=== PATIENT | male | born 1960 | race Caucasian/White ===

== ENCOUNTER → 2020-07-05 14:43 | Outpatient (CLI) | payer OTHER, SELFPAY | PROVIDERS: Family Provider Family Medicine; PCP Family Medicine; Referring Provider Family Medicine; Visit Provider Family Medicine | DX: R20.2 Paresthesia of skin (principal) | CPT/HCPCS: 95886; 95911 ==

== ENCOUNTER → 2020-08-13 09:02 | Outpatient (CLI) | payer OTHER, SELFPAY ==
--- NOTE | 2020-08-13 | DI.MRI.S_ITS ---
PROCEDURE: MR CERVICAL SPINE WO CON INDICATIONS: Radiculopathy, cervical region TECHNIQUE: Noncontrast sagittal T1 spin echo and T2 fast spin echo, sagittal STIR, foraminal oblique sagittal T2 fast spin echo, and axial gradient echo or T2 fast spin echo through the cervical spine. COMPARISON: [facility], CR, XR CERVICAL SPINE WITH OBLIQUES, 02/05/2018, 14:52. FINDINGS: Image quality: Diagnostic, with note made of motion artifact. Alignment and Curvature: There is mild retrolisthesis seen at C3-C4 and C4-C5. Bone Marrow: Marrow demonstrates normal overall signal. Spinal Cord: Visualized spinal cord has normal size. There is a slight amount of increased T2 weighted signal seen within the spinal cord from the inferior C3 level to the superior C5 level, as on series 3, image 9. No cerebellar tonsillar herniation. Paraspinous Soft Tissues: No paravertebral masses. Prevertebral soft tissues are normal in thickness. C2-C3: The disc height is well-preserved. Loss of disc signal is seen at this level. Moderate generalized disc osteophyte complex is seen. There is mild right-sided and [id number] left-sided facet hypertrophy seen. There is moderate right-sided and at least moderate left-sided neural foraminal narrowing seen. Moderate central canal narrowing is seen, with minimal associated mass effect upon the ventral spinal cord. C3-C4: Moderate loss of disc height is seen. Loss of disc signal is seen. Moderate generalized disc osteophyte complex is seen. There is a central disc osteophyte protrusion seen. Uncovertebral joint hypertrophy is seen at this level. Moderate facet joint hypertrophy is seen. Moderate to severe bilateral neural foraminal narrowing can be seen. Severe central canal narrowing is seen, with associated ventral cord flattening, as on series 4, image 18. C4-C5: Moderate to severe loss of disc height and disc signal can be seen. At least moderate disc osteophyte complex is seen, with a prominent central disc osteophyte protrusion, as on series 4, image 22. Uncovertebral joint hypertrophy is seen at this level. Moderate to severe facet hypertrophy is seen. There is severe bilateral neural foraminal narrowing seen and severe central canal narrowing, with associated ventral cord flattening. C5-C6: Moderate loss of disc height is seen. Loss of disc signal is seen. At least moderate disc osteophyte complex is seen, which is eccentric to the right. Uncovertebral joint hypertrophy is seen at this level. Moderate facet joint hypertrophy is seen. There is moderate right-sided and at least moderate left-sided neural foraminal narrowing seen. Moderate central canal narrowing is seen. C6-C7: Moderate loss of disc height is seen. Loss of disc signal is seen. Moderate disc osteophyte complex is seen, which is eccentric to the left. Uncovertebral joint hypertrophy is seen at this level. Moderate facet joint hypertrophy is seen. There is at least moderate bilateral neural foraminal narrowing seen. Mild to moderate central canal narrowing is seen, with minimal associated mass effect upon the ventral spinal cord. C7-T1: The disc height is well-preserved. Loss of disc signal is seen at this level. Mild to moderate disc osteophyte complex is seen at this level. Mild facet joint hypertrophy is seen. There is mild to moderate right-sided and moderate left-sided neural foraminal narrowing seen. No significant central canal narrowing is seen. IMPRESSION: Multiple levels of cervical spine degenerative change are seen, which are worst at the C4-C5 level, where there is severe bilateral neural foraminal narrowing and severe central canal narrowing. 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 Dictated by: Carlo Larsen M.D. on 08/13/2020 at 9:09 Approved by: Carlo Larsen M.D. on 08/13/2020 at 9:14
== END ==
PROVIDERS: Family Provider Family Medicine; PCP Family Medicine; Referring Provider Family Medicine; Visit Provider Family Medicine
DX: M50.121 Cervical disc disorder at C4-C5 level with radiculopathy (principal); M48.02 Spinal stenosis, cervical region
CPT/HCPCS: 72141

== ENCOUNTER → 2021-01-10 10:55 | Outpatient (CLI) | payer OTHER, SELFPAY ==
--- NOTE | 2021-01-10 | DI.RAD.S_ITS ---
PROCEDURE: XR CERVICAL SPINE 1V INDICATIONS: NECK PAIN TECHNIQUE: Single lateral view of the cervical spine acquired. COMPARISON: [facility], MR, MR CERVICAL SPINE WO CON, 08/13/2020, 9:10. [facility], CR, XR CERVICAL SPINE WITH OBLIQUES, 02/05/2018, 14:52. FINDINGS: Bones: No fractures or dislocations to the T1 level. No suspicious bony lesions. There has been anterior cervical plate fusion from C3 through C5, with interbody disc spacer at C3-4 and C4-5. Positioning is as expected, alignment is normal. Soft tissues: No prevertebral soft tissue swelling. IMPRESSION: Normal appearance after cervical fusion with interbody disc spacing devices from C3 through C5. Dictated by: Aleksey Irby M.D. on 01/10/2021 at 12:58 Approved by: Aleksey Irby M.D. on 01/10/2021 at 13:00
== END ==
PROVIDERS: Family Provider Family Medicine; PCP Family Medicine; Referring Provider Neurological Surgery; Visit Provider Neurological Surgery
DX: M48.02 Spinal stenosis, cervical region (principal); M47.12 Other spondylosis with myelopathy, cervical region; M54.2 Cervicalgia; Z98.1 Arthrodesis status
CPT/HCPCS: 72020

== ENCOUNTER → 2021-02-26 12:29 | Outpatient (CLI) | payer OTHER, SELFPAY ==
--- NOTE | 2021-02-26 12:37 | DI.RAD.S_ITS ---
PROCEDURE: XR HIP W PEL IF DONE RT 2V INDICATIONS: RT HIP/ BACK PAIN TECHNIQUE: AP pelvis with lateral view(s) of the right hip(s). COMPARISON: None. FINDINGS: Bones: No fractures or dislocations. Pelvic ring appears intact. No suspicious bony lesions. Soft tissues: The visualized bowel gas pattern is normal. No suspicious soft tissue calcifications. IMPRESSION: No trauma found. Minimal joint space narrowing at the right hip, slightly more prominent than on the left. No prior trauma found. Dictated by: Aleksey Irby M.D. on 02/26/2021 at 14:15 Approved by: Aleksey Irby M.D. on 02/26/2021 at 14:16
--- NOTE | 2021-02-26 12:37 | DI.RAD.S_ITS ---
PROCEDURE: XR LUMBAR SPINE 2-3V INDICATIONS: RT HIP/ BACK PAIN TECHNIQUE: 3 views of the lumbar spine were acquired. [facility], [facility], 12:20. FINDINGS: Bones: The 12th ribs bilaterally are diminutive. Air seen on the frontal view but would not be visible on the lateral view. 5 vcc-nvm-ijvrakw vertebrae are present and there is a rudimentary disc at L5-S1.. There is normal bony alignment. No vertebral body compression fractures. No suspicious bony lesions. Soft tissues: Overlying bowel gas pattern is normal. No suspicious soft tissue calcifications. IMPRESSION: No acute disease. Rudimentary disc at L5-S1 and also rudimentary T12 ribs. Alternatively, when viewing the thoracic spine there is a possible fully developed large 12th rib present bilaterally and the rudimentary ribs immediately below may represent ribs at L1 or 13 rib-bearing vertebral bodies of the thoracic spine. Regardless, some degree of segmentation anomaly is present. However, no trauma is found, no subluxation is seen, and no significant degenerative disc disease is found. Facet osteoarthritis appears to become slightly more prominent as the sacrum is approached, as a likely cause for low back pain. Dictated by: Aleksey Irby M.D. on 02/26/2021 at 14:16 Approved by: Aleksey Irby M.D. on 02/26/2021 at 14:22
== END ==
PROVIDERS: Family Provider Family Medicine; PCP Family Medicine; Referring Provider Family Medicine; Visit Provider Family Medicine
DX: M25.551 Pain in right hip (principal); M54.9 Dorsalgia, unspecified
CPT/HCPCS: 72100; 73502

== ENCOUNTER → 2021-03-06 12:50 | Outpatient (CLI) | payer OTHER, SELFPAY ==
--- NOTE | 2021-03-06 12:54 | DI.RAD.S_ITS ---
PROCEDURE: XR CERVICAL SPINE 2V OR 3V INDICATIONS: Headache, unspecified TECHNIQUE: 3 view(s) of the cervical spine were acquired. COMPARISON: [facility], CR, XR CERVICAL SPINE 1V, 01/10/2021, 11:39. FINDINGS: Bones: No fracture. Postsurgical changes related ACDF at C3-C4 and C4-C5 with interbody cage grafts. Multilevel spondylosis/endplate changes. Diffuse facet arthropathy. Mild narrowing of the C5-C6 C6-C7 and C7-T1 disc spaces. No evidence of abnormal motion with dynamic flexion and extension lateral views. Soft tissues: No prevertebral soft tissue swelling. IMPRESSION: Expected postoperative alignment. No interval change since 01/10/21. No evidence of abnormal motion with dynamic flexion and extension lateral views. Dictated by: Meño Brooks M.D. on 03/06/2021 at 14:27 Approved by: Meño Brooks M.D. on 03/06/2021 at 14:29
== END ==
PROVIDERS: Family Provider Family Medicine; PCP Family Medicine; Referring Provider Neurological Surgery; Visit Provider Neurological Surgery
DX: M47.12 Other spondylosis with myelopathy, cervical region (principal); M48.02 Spinal stenosis, cervical region; R51.9 Headache, unspecified
CPT/HCPCS: 72040

== ENCOUNTER → 2021-11-15 17:49 | Outpatient (CLI) | payer OTHER, SELFPAY ==
--- NOTE | 2021-11-15 17:51 | DI.MRI.S_ITS ---
PROCEDURE: MR LUMBAR SPINE WO CON INDICATIONS: Right L5-S1 radiculopathy TECHNIQUE: Noncontrast sagittal T1 spin echo and T2 fast echo, sagittal STIR, axial T1 and T2 fast spin echo through the lumbar spine. In cases with scoliosis, additional coronal T2 fast spin echo may be performed. COMPARISON: [facility], CR, XR LUMBAR SPINE 2-3V, 02/26/2021, 12:37. FINDINGS: Image quality: Excellent. Alignment and Curvature: There is normal bony alignment. Bone Marrow: Marrow is of normal overall signal. No acute vertebral body compression fractures. Spinal Cord: Conus medullaris terminates at the L1-L2 level. Visualized cord demonstrates normal signal and size. Paraspinous Soft Tissues: No paravertebral masses. T12-L1: No canal stenosis or foraminal stenosis. L1-L2: No canal stenosis or foraminal stenosis. L2-L3: No canal stenosis or foraminal stenosis. L3-L4: Disc bulge, facet hypertrophy. Fwdq-vt-voozlbcz canal stenosis. Mild bilateral foraminal stenosis. L4-L5: Disc bulge, facet hypertrophy, epidural lipomatosis. Mvqw-iu-fasoqyfc canal stenosis. Bilateral foraminal annulus tears plus disc bulges with mild bilateral foraminal narrowing. L5-S1: Disc bulge. Facet hypertrophy. Borderline canal stenosis. Right foraminal annulus tear plus disc bulge. Moderate right foraminal narrowing with mild flattening deformity on the exiting right L5 nerve root. IMPRESSION: 1. Multilevel facet arthropathy. 2. Canal stenosis is mild to moderate at L3-L4, mfwr-og-tlkiysrm at L4-L5, and borderline at L5-S1. 3. There are bilateral foraminal annulus tears at L4-L5 and there is a right foraminal annulus tear at L5-S1. 4. Multilevel foraminal narrowing as described above, including moderate right foraminal narrowing at L5-S1. Dictated by: Adria Ambriz M.D. on 11/15/2021 at 19:13 Approved by: Adria Ambriz M.D. on 11/15/2021 at 19:18
== END ==
PROVIDERS: Family Provider Family Medicine; PCP Family Medicine; Referring Provider Physical Medicine & Rehabilitation; Visit Provider Physical Medicine & Rehabilitation
DX: M47.26 Other spondylosis with radiculopathy, lumbar region (principal); M47.27 Other spondylosis with radiculopathy, lumbosacral region; M48.061 Spinal stenosis, lumbar region without neurogenic claudication; M48.07 Spinal stenosis, lumbosacral region
CPT/HCPCS: 72148

== ENCOUNTER → 2022-01-13 13:23 | Outpatient (CLI) | payer OTHER, SELFPAY ==
[2022-01-13 17:15] LABS: COVID19 -Nasal RAPID Negative (Negative)
== END ==
PROVIDERS: Family Provider Family Medicine; PCP Family Medicine; Visit Provider Physical Medicine & Rehabilitation
DX: Z20.822 Contact with and (suspected) exposure to COVID-19 (principal)
CPT/HCPCS: 87635; C9803

== ENCOUNTER 2022-01-14 14:44 | Outpatient (CLI) | payer OTHER, SELFPAY ==
[2022-01-14] VITALS (10 sets, daily range): BP systolic 117–152; BP diastolic 56–92; PULSE 80–86; RESP 12–21; TEMP 36.9; O2SAT 95–98
--- NOTE | 2022-01-14 14:47 | DI.RAD.S_ITS ---
PROCEDURE: PAIN L/S FACET INJ/BLK 1ST SHEN COMPARISON: None. INDICATIONS: Spondylosis FINDINGS: Access needle tips localized to the bilateral L4-L5 and L5-S1 facet joint space. Injection of small amount of contrast material through the access needles confirms positioning of the tips in the facet joints. IMPRESSION: Access needles localized to the bilateral L4-L5 and L5-S1 facet joints. Dictated by: Kassie Montoya MD, PhD on 01/15/2022 at 11:27 Approved by: Kassie Montoya MD, PhD on 01/15/2022 at 11:28
[2022-01-14] MEDS: fentaNYL 100 MCG/2 ML INJ (15:25)
[2022-01-14] MEDS: MIDAZOLAM 2 MG/2 ML VIAL (15:25)
[2022-01-14] MEDS: IOPAMIDOL 15 ML VIAL INJ (15:29)
[2022-01-14] MEDS: BUPIVACAINE 0.5% (PF) VIAL 30 ML (15:29)
[2022-01-14] MEDS: BETAMETHASONE 30 MG/5 ML MDV (15:30)
[2022-01-14] MEDS: LIDOCAINE 1% 20 ML (15:30)
[2022-01-14] MEDS: MIDAZOLAM 2 MG/2 ML VIAL IV (15:32)
--- NOTE | 2022-01-14 15:41 | DI.RAD.S_ITS ---
PROCEDURE: XR HAND LT 2V INDICATIONS: cmc joint pain TECHNIQUE: 2 views of the hand(s) acquired. COMPARISON: None. FINDINGS: Bones: No fractures or dislocations. Carpal bones are normally aligned. No suspicious bony lesions. Joint space narrowing and periarticular osteophyte formation at the scaphoid trapezial, 1st carpometacarpal joint, 1st metacarpophalangeal joint, as well as the interphalangeal joints of the digits, indicating osteoarthritis. Soft tissues: No suspicious soft tissue calcifications. IMPRESSION: Osteoarthritis. No acute fracture. No osseous lesion. If symptoms and/or clinical suspicion for pathology persist, further assessment with repeat, or advanced imaging (e.g., CT, MRI, or bone scan) may be helpful for further assessment. Dictated by: Eden Hassan M.D. on 01/14/2022 at 16:37 Approved by: Eden Hassan M.D. on 01/14/2022 at 16:37
--- NOTE | 2022-01-14 15:41 | DI.RAD.S_ITS ---
PROCEDURE: XR HAND RT 2V INDICATIONS: cmc joint pain TECHNIQUE: 2 views of the hand(s) acquired. COMPARISON: None. FINDINGS: Bones: No fractures or dislocations. Carpal bones are normally aligned. No suspicious bony lesions. Joint space narrowing and periarticular osteophyte formation at the scaphoid trapezial, 1st carpometacarpal joint, as well as the interphalangeal joints of the digits, indicating osteoarthritis. Periarticular lucency involves the 5th metacarpal head. Soft tissues: No suspicious soft tissue calcifications. IMPRESSION: 1. Osteoarthritis. 2. Possible periarticular erosion involving the 5th metacarpophalangeal joint, which could indicate erosive arthropathy. Dictated by: Eden Hassan M.D. on 01/14/2022 at 16:36 Approved by: Eden Hassan M.D. on 01/14/2022 at 16:37
--- NOTE | 2022-01-14 15:44 | P.PCN_ITS ---
Date/Time/Diagnoses Date of procedure: 01/14/22 Time of procedure: 15:44 Pre-procedure diagnosis: 1. FACET ARTHROPATHY 2. AXIAL LBP 3. MULTILEVEL DDD Post-procedure diagnosis: same Procedure Notes Procedure: 1. FLUOROSCOPICALLY GUIDED CONTRAST CONTROLLED FACET JOINT INJECTIONS BILATERAL L4/5, L5/S1 Indications: Ramón is referred by Dr. Trinidad for treatment of Axial LBP Physician: Severo Glasgow Total Fluoroscopy time (seconds): 15 Total sedation minutes: 14 Complications: none Procedure in detail & Post-procedure care: FINDINGS Multilevel Facet Arthropathy with Clinically significant axial LBP DESCRIPTION OF PROCEDURE Fluoroscopically guided, contrast-controlled bilateral L4/5, L5/S1 facet joint injections. Following review of allergy and review of potential side effects and complications, including, but not necessarily limited to, infection, allergic reaction, local tissue breakdown, stroke, temporary or permanent nerve injury, paralysis, and possible , the patient indicated that the patient understood and agreed to proceed. An informed consent document was signed by the patient, witnessed by a nurse, and placed in the patient's chart. Additionally, other treatment options including medications, modalities, and physical therapy were reviewed with the patient. After review of previous anaesthesic history and IV conscious sedation the patient was deemed safe to proceed with today?s procedure with IV conscious sedation as ASA class II designation. Safety time-out was performed to confirm patient ID, procedure to be performed and site of procedure. IV sedation was accomplished with a combination of 4mg of Versed and 50mcg of Fentanyl was administered by the RN after DO order, titrated to patient comfort during the course of the procedure while the patient remained responsive to all verbal commands In the prone position, following sterile prep and drape of the lumbar region, the posterior aspect of the L4/5, L5/S1 facet joints were identified fluoroscopically. The skin was anesthetized via a 25-gauge 1.5inch needle with 1% lidocaine solution into the corresponding facet joints. At this point, a 22- gauge 3.5-inch spinal needle was atraumatically introduced and advanced under fluoroscopic guidance into the corresponding facet joints. Following negative aspiration, injections of approximately 0.2cc of Isovue 200 confirmed inte rarticular placement without vascular uptake. The identical procedure was then performed at the L4/5, L5/S1 facet joints on the left. Radiological data, including multiple fluoroscopic views of the lumbosacral spine, reveal a spinal needle at the L4/5, L5/S1 facet joints bilaterally. Subsequent views show flow of contrast material both superiorly and inferiorly within the joint space without vascular or intrathecal uptake. At this point, a total of 0.5cc including a mixture of 0.25cc Marcaine and 0.25cc betamethasone was injected without complication into each of the corresponding facet joints. The patient tolerated the procedure well without signs or symptoms of complications prior to transfer to the recovery area continued monitoring without incident. The patient was then transferred to the recovery area where they were observed for an appropriate period of time after the injection. The patient reported a VAS score of 7 prior to the procedure and a post- procedure VAS of 0. POST OP INSTRUCTIONS The patient was provided a Pain Log to continue to record their response to the target-specific procedure prior to follow-up visit with their referring physician. Additionally, specific post-injection care instructions and a contact number to our office were provided if concerns arise regarding possible complications associated with the procedure are suspected.
== END 2022-01-14 16:08 | disposition home or self-care (01) ==
PROVIDERS: Family Provider Family Medicine; PCP Family Medicine; Referring Provider Physical Medicine & Rehabilitation; Visit Provider Physical Medicine & Rehabilitation
DX: M47.816 Spondylosis without myelopathy or radiculopathy, lumbar region (principal); M47.817 Spondylosis without myelopathy or radiculopathy, lumbosacral region; M51.36 Other intervertebral disc degeneration, lumbar region; M51.37 Other intervertebral disc degeneration, lumbosacral region; M18.0 Bilateral primary osteoarthritis of first carpometacarpal joints
CPT/HCPCS: 64493; 64494; 73120; 99152; J0702; J2250; J3010

== ENCOUNTER → 2022-01-14 16:16 | Outpatient (CLI) | payer OTHER, SELFPAY | PROVIDERS: Family Provider Family Medicine; PCP Family Medicine; Referring Provider Physical Medicine & Rehabilitation; Visit Provider Physical Medicine & Rehabilitation | DX: M18.0 Bilateral primary osteoarthritis of first carpometacarpal joints (principal) ==

== ENCOUNTER → 2022-03-25 10:53 | Outpatient (CLI) | payer OTHER, SELFPAY ==
[2022-03-25 12:30] LABS: COVID19 -Nasal RAPID Negative (Negative)
== END ==
PROVIDERS: Family Provider Family Medicine; PCP Family Medicine; Visit Provider Physical Medicine & Rehabilitation
DX: Z20.822 Contact with and (suspected) exposure to COVID-19 (principal)
CPT/HCPCS: 87635; C9803

== ENCOUNTER 2022-03-27 12:28 | Outpatient (CLI) | payer OTHER, SELFPAY ==
[2022-03-27] VITALS (9 sets, daily range): BP systolic 110–149; BP diastolic 55–86; PULSE 79–93; RESP 12–22; TEMP 36.7; O2SAT 96–98
--- NOTE | 2022-03-27 12:34 | DI.RAD.S_ITS ---
PROCEDURE: PAIN L/S FACET INJ/BLK 1ST SHEN COMPARISON: [facility], , PAIN L/S FACET INJ/BLK 1ST SHEN, 01/14/2022, 16:29. INDICATIONS: SPONDYLOSIS FINDINGS: Fluoroscopic spot filming was performed to verify placement of spinal needles on both sides at the L4, L5, and S1 levels, as labeled on the films. Appropriate location of the needle tips was confirmed by injection of iodinated contrast. IMPRESSION: Intraprocedural examination demonstrating appropriate positions of the needles. Dictated by: Carlo Larsen M.D. on 03/27/2022 at 13:08 Approved by: Carlo Larsen M.D. on 03/27/2022 at 13:09
[2022-03-27] MEDS: MIDAZOLAM 2 MG/2 ML VIAL IV (13:16)
[2022-03-27] MEDS: MIDAZOLAM 2 MG/2 ML VIAL (13:21)
[2022-03-27] MEDS: IOPAMIDOL 15 ML VIAL 3 ML INJ (13:22)
[2022-03-27] MEDS: LIDOCAINE 1% 20 ML (13:22)
[2022-03-27] MEDS: BUPIVACAINE 0.5% (PF) VIAL 5 ML INJ (13:22)
--- NOTE | 2022-03-27 13:37 | PM.PROC.IR.1 ---
Date/Time/Diagnoses Date of procedure: 03/27/22 Time of procedure: 13:37 Pre-procedure diagnosis: 1. FACET ARTHROPATHY Post-procedure diagnosis: same Procedure Notes Procedure: 1. BILATERAL- L4, L5 and S1 DIAGNOSTIC MB BLOCKS with LA Anesthetic Indications: Ramón is referred by Dr. Trinidad for treatment of Bilateral Axial LBP. Physician: Severo Glasgow Total Fluoroscopy time (seconds): 14 Total sedation minutes: 15 Complications: none Procedure in detail & Post-procedure care: DESCRIPTION OF PROCEDURE Fluoroscopically guided, contrast-controlled bilateral L4, L5 and S1 medial branch blocks with 0.5cc of 0.5% Marcaine. Following review of allergy and review of potential side effects and complications, including, but not necessarily limited to, infection, allergic reaction, local tissue breakdown, nerve injury, paralysis, stroke and possible , the patient indicated that the patient understood and agreed to proceed. An informed consent document was signed by the patient, witnessed by a nurse, and placed in the patient's chart. After review of previous anaesthesic history and IV conscious sedation the patient was deemed safe to proceed with today's procedure with IV conscious sedation as ASA class II designation. Safety time-out was performed to confirm patient ID, procedure to be performed and site of procedure. IV sedation was accomplished with a combination of 4mg of Versed was administered by the RN after DO order, titrated to patient comfort during the course of the procedure while the patient remained responsive to all verbal commands In the prone position, following sterile prep and drape of the lumbar region, the right L4, L5 and S1 anatomical location of the medial branch of the dorsal ramus was identified fluoroscopically. Subsequently an anesthetic skin wheal using 1% lidocaine solution was initiated at each of the anatomical spots. Subsequently then a 22-gauge 3.5-inch spinal needle was atraumatically introduced and advanced under fluoroscopic guidance at each of the corresponding sites at the right L4, L5 and S1 MB. After negative aspiration, 0.2cc of Isovue 200 was injected, confirming placement without vascular or intrathecal uptake. Subsequently then 0.5cc of 0.5% Marcaine solution was injected at each of the corresponding sites at the right L4, L5 and S1 medial branch locations. The identical procedure was replicated on the left. The patient tolerated the procedure well without signs or symptoms of complications prior to transfer to the recovery area continued monitoring without incident. Post-procedure, the patient was monitored initiating provocative activities to measure the amount of relief from block of the facetogenic pain. The patient reported a VAS of 7 prior to the procedure and a post-procedure VAS of 1. It has been a pleasure to assist in the diagnostic and therapeutic care of your patient. POST OP INSTRUCTIONS The patient was provided with a Pain Log to complete over the next several hours and subsequent days prior to the patient's follow up with the ordering physician. If the patient has supervisor corduroy cutting relief to the solution applied, then they may be a candidate for medial branch rhizotomy. The patient is aware, was provided, once again, with a Pain Log and will follow up with the referring physician for review and clinical correlation
== END 2022-03-27 13:55 | disposition home or self-care (01) ==
LOC: RAD 12:31
PROVIDERS: Family Provider Family Medicine; PCP Family Medicine; Referring Provider Physical Medicine & Rehabilitation; Visit Provider Physical Medicine & Rehabilitation
DX: M47.816 Spondylosis without myelopathy or radiculopathy, lumbar region (principal); M47.817 Spondylosis without myelopathy or radiculopathy, lumbosacral region
CPT/HCPCS: 64493; 64494; 99152; J2250

== ENCOUNTER → 2022-06-17 10:56 | Outpatient (CLI) | payer OTHER, SELFPAY ==
[2022-06-17 12:14] LABS: COVID19 -Nasal RAPID Negative (Negative)
== END ==
PROVIDERS: Family Provider Family Medicine; PCP Family Medicine; Visit Provider Physical Medicine & Rehabilitation
DX: Z20.822 Contact with and (suspected) exposure to COVID-19 (principal)
CPT/HCPCS: 87635; C9803

== ENCOUNTER 2022-06-19 10:43 | Outpatient (CLI) | payer OTHER, SELFPAY ==
[2022-06-19] VITALS (13 sets, daily range): BP systolic 119–181; BP diastolic 69–89; PULSE 71–82; RESP 12–20; TEMP 36.3; O2SAT 95–99
--- NOTE | 2022-06-19 10:44 | DI.RAD.S_ITS ---
PROCEDURE: PAIN L/S MED/LAT N RFA BILAT INDICATIONS: SPONDYLOSIS COMPARISON: [facility], XA, PAIN L/S FACET INJ/BLK 1ST SHEN, 01/14/2022, 16:29. [facility], XA, PAIN L/S FACET INJ/BLK 1ST SHEN, 03/27/2022, 13:21. FINDINGS: Fluoroscopic spot filming was performed to verify placement of spinal needles on both sides at the L4, L5, and S1 levels, as labeled on the films. IMPRESSION: Images during rhizotomy within normal limits. Dictated by: Carlo Larsen M.D. on 06/24/2022 at 8:10 Approved by: Carlo Larsen M.D. on 06/24/2022 at 8:10
[2022-06-19] MEDS: LIDOCAINE 1% (PF) 5 ML INJ (12:17)
[2022-06-19] MEDS: BUPIVACAINE 0.5% (PF) VIAL 5 ML INJ (12:24)
[2022-06-19] MEDS: MIDAZOLAM 2 MG/2 ML VIAL 4 MG IV (12:26)
--- NOTE | 2022-06-19 12:52 | P.PCN_ITS ---
Date/Time/Diagnoses Date of procedure: 06/19/22 Time of procedure: 12:53 Pre-procedure diagnosis: 1. RECALCITRANT FACET ARTHROPATHY Post-procedure diagnosis: same Procedure Notes Procedure: 1. BILATERAL L4 AND L5 MEDIAL BRANCH RADIOFREQUENCY NEUROTOMY AND S1 DORSAL RAMUS BRANCH RADIOFREQUENCY NEUROTOMY Indications: Carter is referred by Dr. Trinidad for treatment of facet arthropathy. Physician: Severo Glasgow Total Fluoroscopy time (seconds): 21 Total sedation minutes: 39 Complications: none Procedure in detail & Post-procedure care: DESCRIPTION OF PROCEDURE Bilateral L4 and L5 medial branch radiofrequency neurotomy and bilateral S1 dorsal ramus radiofrequency neurotomy under fluoroscopy with conscious sedation. The patient is well known to this clinic having undergone previous facet injections with good but temporary relief. The patient has experienced appropriate, concordant relief with previous facet and median branch blocks but the patient's pain has been recalcitrant to further conservative measures. Therefore, based upon the patient's relief and persistent symptoms, the patient is considered an appropriate candidate for facet rhizotomy. All of the patient's questions regarding the risks versus benefits of the procedure, including, but not limited to, bleeding, infection, temporary as well as lasting nerve injury, paralysis, stroke, and , as well treatment alternatives were answered to satisfaction. After obtaining informed consent, denial of pertinent drug allergies, as well as being made aware of the potential risks of bleeding, infection, spinal cord trauma, paralysis, temporary and permanent nerve damage, seizure, stroke, and possible , the patient was brought to the fluoroscopy suite and positioned prone on the fluoroscopy table. The lumbar region was prepped with Betadine and covered with a fenestrated drape in the usual sterile fashion. Appropriate monitors applied including pulse oximeter, pulse, and blood pressure for regular monitoring throughout the procedure. After review of previous anaesthesic history and IV conscious sedation the patient was deemed safe to proceed with today's procedure with IV conscious sedation as ASA class II designation. Safety time-out was performed to confirm patient ID, procedure to be performed and site of procedure. IV sedation was accomplished with a combination of 4mg of Versed administered by the RN after DO order, titrated to patient comfort during the course of the procedure while the patient remained responsive to all verbal commands. After local infiltration using 1% lidocaine, under fluoroscopic guidance, a 10- cm RF insulated needle with a 10-mm active tip was positioned parallel to the junction of the right sacral ala and the superior articulating process where the S1 dorsal ramus resides. Needle placement was confirmed with motor stimulation of .5v on the right which produced local stimulation without radicular component. The stimulation was then increased to 2v with, once again, only local multifidus stimulation without radicular component. The needle was then removed and the identical procedure was performed along the length of the right L5 medial branch with motor stimulation at .7v on the right. The identical procedure was once again performed along the length of the right L4 medial branch with motor stimulation of .5v on the right. The medial branches were then anesthetised with 0.5% Marcaine. This was then followed by two discreet lesions performed at 80 degrees Celsius for 90 seconds each. The identical procedure was repeated on the left. The patient tolerated the procedure well without signs or symptoms of complications prior to transfer to the recovery area continued monitoring without incident. The patient was then transferred to the recovery area where they were observed for an appropriate period of time after the injection. The patient reported a VAS score of 9 prior to the procedure and a post-procedure VAS of 0. POST OP INSTRUCTIONS The patient was provided a Pain Log to continue to record the patient's response to the target-specific procedure prior to the patient's follow-up visit with the referring physician. Additionally, specific post-injection care instructions and a contact number to our office were provided if concerns arise regarding possible complications associated with the procedure are suspected.
== END 2022-06-19 13:08 | disposition home or self-care (01) ==
LOC: RAD 10:44
PROVIDERS: Family Provider Family Medicine; PCP Family Medicine; Referring Provider Physical Medicine & Rehabilitation; Visit Provider Physical Medicine & Rehabilitation
DX: M47.816 Spondylosis without myelopathy or radiculopathy, lumbar region (principal); M47.817 Spondylosis without myelopathy or radiculopathy, lumbosacral region
CPT/HCPCS: 64635; 64636; 99152; 99153; J2250

== ENCOUNTER 2022-10-14 08:54 | Outpatient (CLI) | payer OTHER, SELFPAY ==
[2022-10-14] VITALS (8 sets, daily range): BP systolic 123–157; BP diastolic 67–89; PULSE 66–77; RESP 13–20; TEMP 36.3; O2SAT 97–100
--- NOTE | 2022-10-14 08:55 | DI.RAD.S_ITS ---
PROCEDURE: PAIN L INTERLAMINAR/CAUDAL INJ INDICATIONS: SPONDYLOSIS COMPARISON: [facility], , PAIN L/S MED/LAT N RFA BILAT, 06/19/2022, 12:12. FINDINGS: Fluoroscopic spot filming was performed to verify placement of a spinal needle at the L5-S1 level, as labeled on the films. Appropriate location of the needle tip was confirmed by injection of iodinated contrast. IMPRESSION: No significant intraprocedural abnormality. Dictated by: Carlo Larsen M.D. on 10/14/2022 at 10:11 Approved by: Carlo Larsen M.D. on 10/14/2022 at 10:11
[2022-10-14] MEDS: MIDAZOLAM 2 MG/2 ML VIAL IV (09:49)
[2022-10-14] MEDS: IOPAMIDOL 15 ML VIAL 3 ML INJ (09:55)
[2022-10-14] MEDS: BUPIVACAINE 0.25% (PF) VIAL 2 ML INJ (09:55)
[2022-10-14] MEDS: DEXAMETHASONE 10 MG/ML VIAL 20 MG INJ (09:56)
[2022-10-14] MEDS: methylPREDNISolone acetate 80 MG/ML VIAL INJ (09:56)
--- NOTE | 2022-10-14 10:07 | P.PCN_ITS ---
Date/Time/Diagnoses Date of procedure: 10/14/22 Time of procedure: 10:07 Pre-procedure diagnosis: 1. HNP WITH RADICULAR FEATURES, 2. MULTILEVEL CENTRAL STENOSIS, Post-procedure diagnosis: same Procedure Notes Procedure: 1. FLUOROSCOPICALLY GUIDED CONTRAST CONTROLLED INTERLAMINAR EPIDURAL STEROID INJECTION - L5/S1 Indications: Ramón is referred by Dr. Trinidad for treatment of Bilateral Foraminal Stenosis L>R LE symptoms. Physician: Severo Glasgow Total Fluoroscopy time (seconds): 6 Total sedation minutes: 10 Complications: none Procedure in detail & Post-procedure care: FINDINGS Multilevel Central Spinal Stenosis with Nerve Root Compression DESCRIPTION OF PROCEDURE Fluoroscopically guided, contrast-controlled L5/S1 translaminar epidural steroid injection. Following review of allergy and review of potential side effects and complications, including, but not necessarily limited to, infection, allergic reaction, local tissue breakdown, temporary as well as permanent nerve injury, paralysis, stroke and possible , the patient indicated that the patient understood and agreed to proceed. An informed consent document was signed by the patient, witnessed by a nurse, and placed in the patient's chart. Additionally, other treatment options including modalities, medications, and physical therapy were reviewed with the patient. After review of previous anaesthesic history and IV conscious sedation the patient was deemed safe to proceed with today?s procedure with IV conscious sedation as ASA class II designation. Safety time-out was performed to confirm patient ID, procedure to be performed and site of procedure. IV sedation was accomplished with a combination of 2mg of Versed administered by the RN after DO order, titrated to patient comfort during the course of the procedure while the patient remained responsive to all verbal commands. In the prone position, following sterile prep and drape of the lumbar region, the L5/S1 translaminar space was identified fluoroscopically. The skin was anesthetized via a 25-gauge, 1.5-inch needle with 1% lidocaine solution. At this point, a 22-gauge short bevel spinal needle was atraumatically introduced and advanced under fluoroscopic guidance into the region of the L5/S1 translaminar space. Depth was confirmed on lateral view. Radiological data, including multiple fluoroscopic views of the lumbar spine, reveal a spinal needle at the L5/S1 translaminar space. Lateral views then show placement of the needle in the epidural space. Subsequent views show contrast material flowing superiorly and inferiorly in the epidural space. No vascular or intrathecal uptake is observed. At this point, using loss of resistance technique with saline and air, the epidural space was entered. This was confirmed following negative aspiration with injection of approximately 1.5cc of Isovue 200, showing excellent epidural flow without vascular or intrathecal uptake. At this point, 1 cc of 1% lidocai ne solution combined with 3cc or 20mg of dexamethasone and 6mg of betamethasone was injected without incident. The patent tolerated the procedure without signs of symptoms of complications prior to transfer to the recovery area for further monitoring. The patient was then transferred to the recovery area where they were observed for an appropriate period of time after the injection. The patient reported a VAS score of 6 prior to the procedure and a post-procedure VAS of 0. POST OP INSTRUCTIONS The patient was provided a Pain Log to continue to record their response to the target-specific procedure prior to follow-up visit with their referring physician. Additionally, specific post-injection care instructions and a contact number to our office were provided if concerns arise regarding possible complications associated with the procedure are suspected.
== END 2022-10-14 10:27 | disposition home or self-care (01) ==
PROVIDERS: Family Provider Family Medicine; PCP Family Medicine; Referring Provider Physical Medicine & Rehabilitation; Visit Provider Physical Medicine & Rehabilitation
DX: M51.17 Intervertebral disc disorders with radiculopathy, lumbosacral region (principal); M48.07 Spinal stenosis, lumbosacral region
CPT/HCPCS: 62323; 99152; J0702; J1030; J1040; J1100; J2250; J3490

== ENCOUNTER 2023-03-24 15:04 | Outpatient (CLI) | payer MEDICARE, OTHER, SELFPAY ==
[2023-03-24] VITALS (8 sets, daily range): BP systolic 121–154; BP diastolic 67–82; PULSE 83–89; RESP 14–20; TEMP 36.7; O2SAT 91–98
--- NOTE | 2023-03-24 15:06 | DI.RAD.S_ITS ---
PROCEDURE: PAIN L INTERLAMINAR/CAUDAL INJ INDICATIONS: SPONDYLOSIS COMPARISON: [facility], XA, PAIN L INTERLAMINAR/CAUDAL INJ, 10/14/2022, 10:54. FINDINGS: Fluoroscopic spot filming was performed to verify placement of spinal needles at the right L3-L4 interlaminar space level(s), as labeled on the films. Appropriate location(s) of the needle tip(s) was confirmed by injection of iodinated contrast. IMPRESSION: Access needle in the right L3-L4 interlaminar space for translaminar epidural steroid injection. Dictated by: Kassie Montoya MD, PhD on 03/24/2023 at 16:32 Approved by: Kassie Montoya MD, PhD on 03/24/2023 at 16:32
[2023-03-24] MEDS: MIDAZOLAM 2 MG/2 ML VIAL IV (15:54)
[2023-03-24] MEDS: DEXAMETHASONE 10 MG/ML VIAL 20 MG INJ (16:01)
[2023-03-24] MEDS: BETAMETHASONE 30 MG/5 ML MDV 6 MG INJ (16:01)
[2023-03-24] MEDS: BUPIVACAINE 0.25% (PF) VIAL 2 ML INJ (16:02)
[2023-03-24] MEDS: IOPAMIDOL 15 ML VIAL 3 ML INJ (16:02)
--- NOTE | 2023-03-24 16:09 | P.PCN_ITS ---
Date/Time/Diagnoses Date of procedure: 03/24/23 Time of procedure: 16:09 Pre-procedure diagnosis: 1. HNP WITH RADICULAR FEATURES, 2. MULTILEVEL CENTRAL STENOSIS, Post-procedure diagnosis: same Procedure Notes Procedure: 1. FLUOROSCOPICALLY GUIDED CONTRAST CONTROLLED INTERLAMINAR EPIDURAL STEROID INJECTION - L3/4 Indications: Carter is referred by Dr. Trinidad for treatment of Bilateral Foraminal Stenosis L>R LE symptoms. Physician: Severo Glasgow Total Fluoroscopy time (seconds): 6 Total sedation minutes: 10 Complications: none Procedure in detail & Post-procedure care: FINDINGS Multilevel Central Spinal Stenosis with Nerve Root Compression DESCRIPTION OF PROCEDURE Fluoroscopically guided, contrast-controlled L3/4 translaminar epidural steroid injection. Following review of allergy and review of potential side effects and complications, including, but not necessarily limited to, infection, allergic reaction, local tissue breakdown, temporary as well as permanent nerve injury, paralysis, stroke and possible , the patient indicated that the patient understood and agreed to proceed. An informed consent document was signed by the patient, witnessed by a nurse, and placed in the patient's chart. Additionally, other treatment options including modalities, medications, and physical therapy were reviewed with the patient. After review of previous anaesthesic history and IV conscious sedation the patient was deemed safe to proceed with today?s procedure with IV conscious sedation as ASA class II designation. Safety time-out was performed to confirm patient ID, procedure to be performed and site of procedure. IV sedation was accomplished with a combination of 2mg of Versed was administered by the RN after DO order, titrated to patient comfort during the course of the procedure while the patient remained responsive to all verbal commands. In the prone position, following sterile prep and drape of the lumbar region, the L3/4 translaminar space was identified fluoroscopically. The skin was anesthetized via a 25-gauge, 1.5-inch needle with 1% lidocaine solution. At this point, a 22-gauge short bevel spinal needle was atraumatically introduced and advanced under fluoroscopic guidance into the region of the L3/4 translaminar space. Depth was confirmed on lateral view. Radiological data, including multiple fluoroscopic views of the lumbar spine, reveal a spinal needle at the L3/4 translaminar space. Lateral views then show placement of the needle in the epidural space. Subsequent views show contrast material flowing superiorly and inferiorly in the epidural space. No vascular or intrathecal uptake is observed. At this point, using loss of resistance technique with saline and air, the epidural space was entered. This was confirmed following negative aspiration with injection of approximately 1.5 cc of Isovue 200, showing excellent epidural flow without vascular or intrathecal uptake. At this point, 1cc of 1% lidocaine solution combined with 3cc or 20mg of dexamethasone and 6mg of betamethasone was injected without incident. The patient tolerated the procedure well without signs or symptoms of complications prior to transfer to the recovery area continued monitoring without incident. The patient was then transferred to the recovery area where they were observed for an appropriate period of time after the injection. The patient reported a VAS score of 6 prior to the procedure and a post- procedure VAS of 0. POST OP INSTRUCTIONS The patient was provided a Pain Log to continue to record their response to the target-specific procedure prior to follow-up visit with their referring physician. Additionally, specific post-injection care instructions and a contact number to our office were provided if concerns arise regarding possible complications associated with the procedure are suspected.
== END 2023-03-24 16:25 | disposition home or self-care (01) ==
PROVIDERS: Family Provider Family Medicine; PCP Family Medicine; Referring Provider Physical Medicine & Rehabilitation; Visit Provider Physical Medicine & Rehabilitation
DX: M51.16 Intervertebral disc disorders with radiculopathy, lumbar region (principal); M48.061 Spinal stenosis, lumbar region without neurogenic claudication
CPT/HCPCS: 62323; 99152; J0702; J1100; J2250; J3490

== ENCOUNTER 2023-05-28 12:24 | Outpatient (CLI) | payer MEDICARE, OTHER, SELFPAY ==
[2023-05-28] VITALS (8 sets, daily range): BP systolic 123–153; BP diastolic 78–90; PULSE 79–90; RESP 12–20; TEMP 36.6; O2SAT 95–98
--- NOTE | 2023-05-28 12:27 | DI.RAD.S_ITS ---
PROCEDURE: PAIN L/S TRANSFORAMINAL INJECT INDICATIONS: SPONDYLOSIS COMPARISON: None. FINDINGS: Fluoroscopic spot filming was performed to verify placement of spinal needles at the right L5-S1 neural foramen level(s), as labeled on the films. Appropriate location(s) of the needle tip(s) was confirmed by injection of iodinated contrast. IMPRESSION: Access needle at the right L5-S1 neural foramen for transforaminal epidural steroid injection Dictated by: Kassie Montoya MD, PhD on 05/28/2023 at 14:30 Approved by: Kassie Montoya MD, PhD on 05/28/2023 at 14:31
[2023-05-28] MEDS: MIDAZOLAM 2 MG/2 ML VIAL IV (13:20)
[2023-05-28] MEDS: IOPAMIDOL 15 ML VIAL 3 ML INJ (13:25)
[2023-05-28] MEDS: BETAMETHASONE 30 MG/5 ML MDV 6 MG INJ (13:26)
[2023-05-28] MEDS: DEXAMETHASONE 10 MG/ML VIAL 20 MG INJ (13:26)
[2023-05-28] MEDS: BUPIVACAINE 0.25% (PF) VIAL 2 ML INJ (13:27)
--- NOTE | 2023-05-28 13:46 | P.PCN_ITS ---
Date/Time/Diagnoses Date of procedure: 05/28/23 Time of procedure: 13:46 Pre-procedure diagnosis: FORAMINAL STENOSIS WITH LE SYMPTOMS Post-procedure diagnosis: same Procedure Notes Procedure: 1. FLUOROSCOPICALLY GUIDED CONTRAST CONTROLLED TRANSFORAMINAL EPIDURAL STEROID INJECTION - RIGHT L5/S1 TFESI Indications: Carter is referred by Dr. Trinidad for treatment of Foraminal Stenosis with Right LE Symptoms Physician: Severo Glasgow Total Fluoroscopy time (seconds): 21 Total sedation minutes: 21 Complications: none Procedure in detail & Post-procedure care: FINDINGS Foraminal Nerve Root Compression secondary to disc disease and facet hypertrophy DESCRIPTION OF PROCEDURE Following review of allergy and review of potential side effects and complications, including, but not necessarily limited to, infection, allergic reaction, local tissue breakdown, stroke, temporary or permanent nerve injury, paralysis, and possible , the patient indicated that the patient understood and agreed to proceed. An informed consent document was signed by the patient, witnessed by a nurse, and placed in the patient's chart. Additionally, other treatment options including medications, modalities, and physical therapy were reviewed with the patient. After review of previous anaesthesic history and IV conscious sedation the patient was deemed safe to proceed with today?s procedure with IV conscious sedation as ASA class II designation. Safety time-out was performed to confirm patient ID, procedure to be performed and site of procedure. IV sedation was accomplished with a combination of 2mg of Versed was administered by the RN after DO order, titrated to patient comfort during the course of the procedure while the patient remained responsive to all verbal commands In the prone position following sterile prep and drape of the lumbar region, the right L5/S1 posterior neuroforamen was identified fluoroscopically. The skin was anesthetized via a 25-gauge 1.5-inch needle with 1% lidocaine solution. At this point, a 25-gauge 3.5-inch spinal needle was atraumatically introduced and advanced under fluoroscopic guidance through the posterior right L5/S1 neuroforamen to approximately the anterior aspect of the canal. Depth was confirmed on lateral view. Following negative aspiration, injection of approximately 1.5cc of Isovue 200 under live fluoroscopy in the AP view confirmed excellent flow along the nerve root, into the epidural space without vascular or intrathecal uptake observed Radiological data, including multiple fluoroscopic views of the lumbosacral spine, reveal a spinal needle at the right L5/S1 posterior neuroforamen. Subsequent views show flow of contrast material flowing superiorly and inferiorly along the nerve root confirming epidural flow. Subsequently, a test dose of 1.5 cc of 1% lidocaine solution was administered and patient was observed for two minutes for signs or symptoms of complications, including abdominal pain, shortness of breath, bilateral upper or lower extremit y weakness, nausea and vomiting, prior to steroid injection. At this point, a total of 3cc or 20mg of dexamethasone and 6mg of betamethasone was injected without incident. The procedure tolerated the procedure well without signs or symptoms of complications prior to transfer to the recovery area continued monitoring without incident. The patient was then transferred to the recovery area where they were observed for an appropriate time after the injection. The patient reported a VAS score of 7 prior to the procedure and a post- procedure VAS of 0. POST OP INSTRUCTIONS The patient was provided a Pain Log to continue to record their response to the target-specific procedure prior to follow-up visit with their referring physician. Additionally, specific post-injection care instructions and a contact number to our office were provided if concerns arise regarding possible complications associated with the procedure are suspected.
== END 2023-05-28 13:55 | disposition home or self-care (01) ==
LOC: RAD 12:26
PROVIDERS: Family Provider Family Medicine; PCP Family Medicine; Referring Provider Physical Medicine & Rehabilitation; Visit Provider Physical Medicine & Rehabilitation
DX: M48.07 Spinal stenosis, lumbosacral region (principal); M51.17 Intervertebral disc disorders with radiculopathy, lumbosacral region
CPT/HCPCS: 64483; 99152; J0702; J1100; J2250; J3490

== ENCOUNTER → 2023-09-14 08:51 | Outpatient (CLI) | payer MEDICARE, OTHER, SELFPAY ==
--- NOTE | 2023-09-14 08:52 | DI.RAD.S_ITS ---
PROCEDURE: XR LUMBAR SPINE MIN 4V INDICATIONS: BACK PAIN TECHNIQUE: 5 views of the lumbar spine were acquired, including bilateral oblique views. COMPARISON: [facility], CR, XR LUMBAR SPINE 2-3V, 02/26/2021, 12:37. FINDINGS: Bones: 5 nonrib-bearing vertebrae are present. Trace, stable retrolisthesis L1-2 and L2-3. Stable disc spacing. Mild interval superior endplate height loss of L1 compared to the prior study. No suspicious bony lesions. Soft tissues: Overlying bowel gas pattern is normal. No suspicious soft tissue calcifications. Mild atherosclerotic calcification. Surgical clips in the left medial retroperitoneum. Oblique images: No pars defects. Mild facet arthropathy without significant progression. IMPRESSION: 1. Minor superior endplate indentation of L1, likely degenerative. 2. Otherwise no significant progression of degeneration compared to the prior study. Dictated by: Vicky Doyle M.D. on 09/14/2023 at 10:23 Approved by: Vicky Doyle M.D. on 09/14/2023 at 10:27
== END ==
PROVIDERS: Family Provider Family Medicine; PCP Family Medicine; Referring Provider Physical Medicine & Rehabilitation; Visit Provider Physical Medicine & Rehabilitation
DX: M47.26 Other spondylosis with radiculopathy, lumbar region; M51.16 Intervertebral disc disorders with radiculopathy, lumbar region; M53.3 Sacrococcygeal disorders, not elsewhere classified; M18.0 Bilateral primary osteoarthritis of first carpometacarpal joints
CPT/HCPCS: 72110; 99213

== ENCOUNTER 2023-09-22 12:28 | Outpatient (CLI) | payer MEDICARE, OTHER, SELFPAY ==
[2023-09-22] VITALS (9 sets, daily range): BP systolic 121–152; BP diastolic 73–88; PULSE 74–86; RESP 12–18; TEMP 36.3; O2SAT 93–98
--- NOTE | 2023-09-22 13:00 | DI.RAD.S_ITS ---
PROCEDURE: PAIN SI JOINT INJECTION INDICATIONS: SACROILIAC DISORDER COMPARISON: [facility], CR, XR LUMBAR SPINE MIN 4V, 09/14/2023, 8:57. FINDINGS: Fluoroscopic spot filming was performed to verify placement of spinal needles at the right SI joint level(s), as labeled on the films. Appropriate location(s) of the needle tip(s) was confirmed by injection of iodinated contrast. IMPRESSION: Fluoroscopy for pain management. Dictated by: Yris Mccrary M.D. on 09/22/2023 at 14:04 Approved by: Yris Mccrary M.D. on 09/22/2023 at 14:04
[2023-09-22] MEDS: MIDAZOLAM 2 MG/2 ML VIAL IV (13:25)
[2023-09-22] MEDS: iopamidoL 15 ML VIAL 3 ML INJ (13:30)
[2023-09-22] MEDS: BUPIVACAINE 0.5% (PF) 10 ML VIAL 2 ML INJ (13:31)
[2023-09-22] MEDS: BETAMETHASONE 30 MG/5 ML MDV 6 MG INJ (13:31)
--- NOTE | 2023-09-22 13:42 | PM.PROC.IR.1 ---
Date/Time/Diagnoses Date of procedure: 09/22/23 Time of procedure: 13:42 Pre-procedure diagnosis: Sacroiliac joint pain/DJD Post-procedure diagnosis: same Procedure Notes Procedure: Fluoroscopically guided contrast controlled right sacroiliac joint injection Indications: Carter is referred by Dr. Trinidad for treatment of right sacroiliac joint DJD Physician: Severo Glasgow Total Fluoroscopy time (seconds): 15 Total sedation minutes: 12 Complications: none Procedure in detail & Post-procedure care: DESCRIPTION OF PROCEDURE Fluoroscopically guided, contrast controlled right sacroiliac joint injection Following review of allergies and review of potential side effects and complications, including, but not necessarily limited to, infection, allergic reaction, local tissue breakdown, temporary as well as permanent nerve injury, paralysis, stroke and possible , the patient indicated that they understood and agreed to proceed. An informed consent was signed by the patient, witnessed by a nurse, and placed in the patient's chart. Additionally, other treatment options including modalities, medications, and physical therapy were reviewed with the patient. After review of previous anaesthesic history and IV conscious sedation the patient was deemed safe to proceed with today?s procedure with IV conscious sedation as ASA class II designation. Safety time-out was performed to confirm patient ID, procedure to be performed and site of procedure. IV sedation was accomplished with a combination of 2mg of Versed was administered by the RN after DO order, titrated to patient comfort during the course of the procedure while the patient remained responsive to all verbal commands In the prone position following sterile prep and drape of the pelvic region, the hyper lucency on in the inferior aspect of the sacroiliac joint was identified fluoroscopically the skin was anesthetized be a 25 gauge 1 eventual with approximately 2 cc of 1% lidocaine solution. At this point, a 22 gauge 3 in spinal needle was atraumatically introduced and advanced under fluoroscopic guidance into the inferior aspect of the right sacroiliac joint. Following negative aspiration, approximately 0.3cc of Isovue-300 was injected confirming intra-articular placement without vascular uptake. Radiographic data, including multiple fluoroscopic views of the pelvis, reveals a spinal needle in the sacroiliac joint hyper lucent zone. Subsequent view show flow contrast tear superiorly and inferiorly within the joint capsule without vascular intrathecal uptake. At this point a total of 1cc of 0.5% Marcaine was combined with 1cc of 6 mg of betamethasone was injected without incident. The procedure tolerated the procedure well without signs or symptoms of complications prior to transfer to the recovery area continued monitoring without incident. The patient was then transferred to the recovery area with a bur observed for an appropriate time after the injection. The patient reverted a vas score of 7 prior to the procedure and post-procedure vas of 1. POSTOP INSTRUCTIONS The patient was provided with a pain like to continue to record the patient's response to the target specific procedure prior to the patient's follow-up visit with the referring physician. Additionally, specific post injection care instructions and a contact number to our office were provided if concerns arise regarding the possible complications associated with procedure are suspected.
== END 2023-09-22 14:00 | disposition home or self-care (01) ==
LOC: RAD 12:29
PROVIDERS: Family Provider Family Medicine; PCP Family Medicine; Referring Provider Physical Medicine & Rehabilitation; Visit Provider Physical Medicine & Rehabilitation
DX: M53.3 Sacrococcygeal disorders, not elsewhere classified (principal); M46.1 Sacroiliitis, not elsewhere classified
CPT/HCPCS: 27096; 77002; 99152; J0702; J2250